=== PATIENT | female | born 1995 | race Caucasian/White ===

== ENCOUNTER 2022-12-26 08:17 | Day surgery (SDC) | payer OTHER ==
[2022-12-26] MEDS ORDERED: Acetaminophen 500 MG TAB PO SCH (08:30)
[2022-12-26] MEDS ORDERED: Acetaminophen 500 MG TAB ONE (08:34)
[2022-12-26] MEDS ORDERED: Iron Sucrose Complex 500 MG in Sodium Chloride 0.9% 250 ML 250 ML IVPB SCH (09:00)
== END 2022-12-26 14:00 | disposition home or self-care (01) ==
LOC: CSHSDC/OP 08:17
PROVIDERS: ATTEND Student in an Organized Health Care Education/Training Program
DX: O99.019 Anemia complicating pregnancy, unspecified trimester (principal); D64.9 Anemia, unspecified; Z3A.00 Weeks of gestation of pregnancy not specified
CPT/HCPCS: J1756; J7050

== ENCOUNTER 2023-01-08 06:44 | Day surgery (SDC) | payer OTHER ==
[2023-01-08 07:11] VITALS: BMI 25.9
[2023-01-08] MEDS ORDERED: hydrALAZINE 20 MG/ML VIAL SLOW IVP PRN (08:25)
== END 2023-01-08 08:49 | disposition home or self-care (01) ==
LOC: CSHLD/OP 06:44
PROVIDERS: ATTEND Emergency Medicine
DX: O26.853 Spotting complicating pregnancy, third trimester (principal); O99.013 Anemia complicating pregnancy, third trimester; D64.9 Anemia, unspecified; O23.43 Unspecified infection of urinary tract in pregnancy, third trimester; R82.71 Bacteriuria; O99.891 Other specified diseases and conditions complicating pregnancy; N20.0 Calculus of kidney; Z79.899 Other long term (current) drug therapy; Z3A.35 35 weeks gestation of pregnancy
CPT/HCPCS: 76815; 99283

== ENCOUNTER 2023-01-26 17:34 | Inpatient (IN) | payer OTHER ==
[2023-01-26 17:55] VITALS: BMI 27.6
[2023-01-26] MEDS ORDERED: hydrALAZINE 20 MG/ML VIAL SLOW IVP PRN (18:23)
[2023-01-26] MEDS ORDERED: Diphenoxylate HCl/Atropine Tablet PO PRN (18:23)
[2023-01-26] MEDS ORDERED: Ondansetron PF 4 MG/2 ML Vial IVP PRN (18:23)
[2023-01-26] MEDS ORDERED: Acetaminophen 500 MG TAB PO PRN (18:23)
[2023-01-26] MEDS ORDERED: Misoprostol 200 MCG TAB PR PRN (18:23)
[2023-01-26] MEDS ORDERED: Promethazine HCl 25 MG/ML VIAL IM PRN (18:23)
[2023-01-26] MEDS ORDERED: Methylergonovine 0.2 MG/ML VIAL IM PRN (18:23)
[2023-01-26] MEDS ORDERED: Carboprost 250 MCG/ML AMP IM PRN (18:23)
[2023-01-26] MEDS ORDERED: Lidocaine 1% (PF) 30 ML VIAL SC PRN (18:23)
[2023-01-26 18:50] LABS: Hematocrit 35.7 % (34.9-44.5); Hemoglobin 11.6 g/dL (12.0-15.5); Mean Corpuscular HGB CONC 32.5 g/dL (32.0-36.0); Mean Corpuscular Hemoglobin 26.1 pg (27.0-33.0); Mean Corpuscular Volume 80.4 fl (81.6-98.3); Mean Platelet Volume 11.5 fl (7.4-10.4); Platelet Count 248 10x3/uL (150-450); RBC Distribution Width 17.5 % (11.5-14.5); Red Blood Cell (RBC) Count 4.44 10x6/uL (3.90-5.03); White Blood Cell (WBC) Count 9.5 10x3/uL (3.5-10.5)
[2023-01-26 19:26] LABS: Syphilis Antibody Nonreactive (Nonreactive); Syphilis Antibody Index 0.05 S/CO (<1.00 Non-Reactive)
[2023-01-26 19:27] LABS: Hep B Surf Ag - L&D Non-Reactive S/CO (NonReactive)
[2023-01-26] MEDS ORDERED: Lactated Ringer's 1,000 ML IV SCH (21:00)
[2023-01-26] MEDS ORDERED: Oxytocin 30 units/NS 500 ML 500 ML IV SCH (21:00)
[2023-01-27] MEDS ORDERED: fentaNYL 50 mcg/mL 1 mL Vial ONE (02:07)
[2023-01-27] MEDS ORDERED: fentaNYL 50 mcg/mL 1 mL Vial SLOW IVP SCH (02:15)
[2023-01-27] MEDS ORDERED: Milk Of Magnesia 30 ML UDCUP PO PRN (04:13)
[2023-01-27] MEDS ORDERED: Bisacodyl 10 MG SUPP PR PRN (04:13)
[2023-01-27] MEDS ORDERED: hydrALAZINE 20 MG/ML VIAL SLOW IVP PRN (04:13)
[2023-01-27] MEDS ORDERED: Boostrix 0.5 ML (Tdap) VIAL (>/=7 yrs of age) IM ONE (04:13)
[2023-01-27] MEDS: Ibuprofen 800 MG TAB PO SCH ×3 (04:15→20:43)
[2023-01-27] MEDS: Docusate 100 MG CAP PO SCH ×2 (08:00→20:43)
[2023-01-27] MEDS ORDERED: Ferrous Sulfate 325 MG TAB PO SCH (08:00)
[2023-01-27] MEDS: Prenatal Vitamin 1 TAB PO SCH (08:00)
[2023-01-27] MEDS ORDERED: Benzocaine-Menthol 82.5 ML CAN TOP PRN (22:10)
[2023-01-27 22:37] VITALS: TEMP 97.7
[2023-01-28] MEDS: Ibuprofen 800 MG TAB PO SCH (05:09)
[2023-01-28] MEDS: Prenatal Vitamin 1 TAB PO SCH (08:18)
[2023-01-28] MEDS: Docusate 100 MG CAP PO SCH (08:18)
[2023-01-28 08:53] VITALS: BP 128/71
== END 2023-01-28 11:15 | disposition home or self-care (01) | DRG 807 ==
LOC: CSHLD/OP 17:34 → UNDOADMIN 18:42 → CSHLD 18:42 → CSHPP 01-27 04:25
PROVIDERS: ADMIT Family Medicine; ATTEND Family Medicine
PROC: 10E0XZZ Delivery of Products of Conception, External Approach (ICD-10-PCS; principal; 2023-01-27)
DX: O99.02 Anemia complicating childbirth (principal); Z37.0 Single live birth; Z3A.37 37 weeks gestation of pregnancy; Z79.899 Other long term (current) drug therapy; D50.9 Iron deficiency anemia, unspecified
CPT/HCPCS: 36415; 85027; 86780; 86850; 86900; 86901; 87340; 99285; J3010